=== PATIENT | male | born 1965 | race Caucasian/White ===

== ENCOUNTER 2024-11-15 12:30 | Emergency (ER) | payer OTHER, BC ==
[~2024-11-15] VITALS: Ht 175.3 cm; Wt 72.6 kg
[2024-11-15 12:49] VITALS: TEMP 98
[2024-11-15 14:24] LABS: BASOPHILS % 0.5 % (0.0-1.0); EOSINOPHILS % 1.8 % (0.0-6.0); LYMPHOCYTES % 37.1 % (18.0-39.1); MONOCYTES % 12.7 % (4.4-11.3); NEUTROPHILS % 47.7 % (38.7-80.0); RED CELL DISTRIBUTION WIDTH 13.2 % (11.7-14.4)
[2024-11-15 14:33] LABS: LEUKOCYTE ESTERASE ,URINE 1+ (NEGATIVE); PROTEIN,URINE DIPSTICK NEGATIVE (NEGATIVE); URINE UROBILINOGEN 0.2 mg/dL (0.2 - 1)
[2024-11-15 14:39] LABS: INR 0.9
[2024-11-15 14:43] LABS: EPITHELIAL CELLS,URINE FEW /LPF; WBC,URINE (MAN) 21-50 /HPF (0-5)
[2024-11-15 14:51] LABS: EST GLOMERULAR FILTRATION RATE 100.0 ML/MIN (>=60)
[2024-11-15] MEDS ORDERED: IOPAMIDOL 370 MG/ML 100 ML INFUS..BTL INJ ONE (15:01)
[2024-11-15] MEDS: Morphine 4mg INJECTION 4 MG/ML INJ IV STA (15:01)
[2024-11-15] MEDS: ONDANSETRON HCL INJ 2MG/ML 2ML 2 MG/ML VIAL IV STA (15:02)
[2024-11-15] MEDS: SODIUM CHLORIDE 0.9% 1000ML 1,000 ML IV STA (15:02)
[2024-11-15] MEDS: HYDROCODONE/APAP 7.5MG-325MG 1 EA TAB PO ONE (15:54)
[2024-11-15] MEDS ORDERED: ULTRAM 50MG50 MG PO (16:29)
[2024-11-15] MEDS ORDERED: CEFDINIR300 MG PO (16:29)
[2024-11-15 16:45] VITALS: PULSE 78; RESP 16; O2SAT 98
== END 2024-11-15 16:53 | disposition home or self-care (01) ==
LOC: ER 13:58
DX: S20.214A Contusion of middle front wall of thorax, initial encounter (principal); M25.521 Pain in right elbow; V29.99XA Rider (driver) (passenger) of other motorcycle injured in unspecified traffic accident, initial encounter; Y92.488 Other paved roadways as the place of occurrence of the external cause; I10 Essential (primary) hypertension; N39.0 Urinary tract infection, site not specified; E27.9 Disorder of adrenal gland, unspecified
CPT/HCPCS: 36415; 70450; 71260; 72125; 73080; 74177; 80053; 81001; 85025; 85610; 85730; 87086; 99284; J2270; J2405; J7030; Q9967